=== PATIENT | male | born 1975 | race Caucasian/White ===

== ENCOUNTER 2016-09-04 01:13 | Observation (INO) | payer BC ==
[2016-09-04] MEDS ORDERED: ASPIRIN 81 MG CHEWABLE TABLET PO ONE (01:41)
[2016-09-04] MEDS: NITROGLYCERIN 0.4MG SL TABLET #25 BTL SL PRN ×3 (01:47→02:01)
[2016-09-04 02:04] LABS: BASO % 0.6 % (0-6); EOS % 6.8 % (0-6); GRAN % 54.6 % (47-80); HEMATOCRIT 41.9 % (42.0-52.0); HEMOGLOBIN 14.5 gm/dl (14.0-18.0); MEAN CELL VOLUME 84.1 fl (81-97); MEAN CORPUSCULAR HEMOGLOBIN 29.1 pg (27-33); MEAN CORPUSCULAR HGB CONC 34.6 g/dl (32-36); MEAN PLATELET VOLUME 9.7 fl (7.4-10.4); PLATELET COUNT 259 K/uL (130-400); RED BLOOD COUNT 4.98 M/uL (4.40-5.70); RED CELL DISTRIBUTION WIDTH 13.9 % (11.5-14.5); WHITE BLOOD COUNT W/O DIFF 11.3 K/uL (4.2-12.2)
[2016-09-04 02:15] LABS: ANION GAP 10.3 (7-16); BLOOD UREA NITROGEN 13 mg/dL (9-20); CARBON DIOXIDE 26.7 mmol/L (22-30); CREATINE PHOSPHOKINASE 77 U/L (55-170); EST GLOMERULAR FILTRATION RATE > 60 ml/min; GLUCOSE,RANDOM 99 mg/dL (70-110)
[2016-09-04 02:27] LABS: CKMB 0.6 ug/L (0-6); TROPONIN I < 0.012 ng/mL (0.00-0.034)
--- NOTE | 2016-09-04 02:54 | Emergency Department Record ---
History of Present Illness - General Chief complaint: Pain Stated complaint: HIGH BLOOD PRESSURE/LEFT ARM PAIN Time Seen by Provider: 09/04/16 01:21 Source: Patient Mode of Arrival: Ambulatory Limitations: No limitations - History of Present Illness Initial comments: pt has been having l shoulder and back and neck pain w some numbness in his l arm. nothing seems to make it better or worse. no other symptoms. no previous episodes. the pain started earlier in the evening and has grown progressively worse. MD Complaint: Neck Pain, Other Onset/Timin -: Hour(s) Location: Left, Shoulder History of Same: Yes Radiation: Proximal Severity scale (1-10): 8 Quality: Other Consistency: Constant Improves with: Nothing Worsens with: Exertion, Other Associated Symptoms: Denies other symptoms - Related Data Home Medications Medication Instructions Recorded Confirmed Last Taken Omeprazole [Prilosec] 20 mg PO DAILY 09/04/16 09/04/16 09/03/16 Allergies Allergy/AdvReac Type Severity Reaction Status Date / Time codeine AdvReac VOMITING Verified 09/04/16 01:21 Travel Screening - Travel/Exposure Within Last 30 Days Have you traveled within the last 30 days?: No - Travel/Exposure Within Last Year Have you traveled outside the [place] in the last year?: No - Additonal Travel Details Have you been exposed to anyone with a communicable illness?: No - Travel Symptoms Symptom Screening: None Review of Systems Reviewed: No additional complaints except as noted below Constitutional: Reports: As per HPI. Denies: Chills, Fever, Malaise, Night sweats, Weakness, Weight change Eyes: Reports: As per HPI. Denies: Eye discharge, Eye pain, Photophobia, Vision change ENT: Reports: As per HPI. Denies: Congestion, Dental pain, Ear pain, Epistaxis , Hearing loss, Throat pain Respiratory: Reports: As per HPI. Denies: Cough, Dyspnea, Hemoptysis, Stridor, Wheezes Cardiovascular: Reports: As per HPI. Denies: Arrhythmia, Chest pain, Dyspnea on exertion, Edema, Murmurs, Orthopnea, Palpitations, Paroxysmal nocturnal dyspnea, Rheumatic Fever, Syncope Endocrine: Reports: As per HPI. Denies: Fatigue, Heat or cold intolerance, Polydipsia, Polyuria Gastrointestinal: Reports: As per HPI. Denies: Abdominal pain, Constipation, Diarrhea, Hematemesis, Hematochezia, Melena, Nausea, Vomiting Genitourinary: Reports: As per HPI. Denies: Dysuria, Frequency, Hematuria, Incontinence, Retention, Testicular pain, Testicular mass, Urgency Musculoskeletal: Reports: As per HPI. Denies: Arthralgia, Back pain, Gout, Joint swelling, Myalgia, Neck pain Skin: Reports: As per HPI. Denies: Bruising, Change in color, Change in hair/ nails, Lesions, Pruritus, Rash Neurological: Reports: As per HPI. Denies: Abnormal gait, Confusion, Headache, Numbness, Paresthesias, Seizure, Tingling, Tremors, Vertigo, Weakness Psychiatric: Reports: As per HPI. Denies: Anxiety, Auditory hallucinations, Depression, Homicidal thoughts, Suicidal thoughts, Visual hallucinations Hematological/Lymphatic: Reports: As per HPI. Denies: Anemia, Blood Clots, Easy bleeding, Easy bruising, Swollen glands Past Medical History - SOCIAL HISTORY Smoking Status: Never smoker Alcohol Use: None Drug Use: None - RESPIRATORY Hx Respiratory Disorders: No - CARDIOVASCULAR Hx Cardio Disorders: No - NEURO Hx Neuro Disorders: No - GI Hx GI Disorders: Yes Hx Reflux: Yes - Hx Genitourinary Disorders: No - ENDOCRINE Hx Endocrine Disorders: No - MUSCULOSKELETAL Hx Musculoskeletal Disorders: No - PSYCH Hx Psych Problems: No - HEMATOLOGY/ONCOLOGY Hx Hematology/Oncology Disorders: No Family Medical History Any Significant Family History?: No Physical Exam - General General Appearance: Alert, Oriented x3, Cooperative, Mild distress - Head Head exam: Normal inspection - Eye Eye exam: Normal appearance, PERRL, EOMI Pupils: Normal accommodation - ENT ENT exam: Normal exam, Mucous membranes moist, Normal external ear exam, Normal orophraynx Ear exam: Normal external inspection. negative: External canal tenderness Nasal Exam: Normal inspection. negative: Discharge, Sinus tenderness Mouth exam: Normal external inspection, Tongue normal Teeth exam: Normal inspection. negative: Dental caries Throat exam: Normal inspection. negative: Tonsillar erythema, Tonsillar exudate - Neck Neck exam: Normal inspection, Full ROM. negative: Tenderness - Respiratory Respiratory exam: Normal lung sounds bilaterally. negative: Respiratory distress - Cardiovascular Cardiovascular Exam: Regular rate, Normal rhythm, Normal heart sounds - GI/Abdominal GI/Abdominal exam: Soft, Normal bowel sounds. negative: Tenderness - Rectal Rectal exam: Deferred - exam: Deferred - Extremities Extremities exam: Normal inspection, Full ROM, Normal capillary refill. negative: Tenderness - Back Back exam: Reports: Normal inspection, Full ROM. Denies: Muscle spasm, Rash noted, Tenderness - Neurological Neurological exam: Alert, CN II-XII intact, Normal gait, Oriented X3 - Psychiatric Psychiatric exam: Normal affect, Normal mood - Skin Skin exam: Dry, Intact, Normal color, Warm Course Vital Signs 09/04/16 09/04/16 09/04/16 01:19 01:20 01:51 Temperature 98.2 F Pulse Rate 85 Pulse Rate [ 96 H 93 H Pulse Ox Probe] Respiratory 24 16 18 Rate Blood Pressure 151/108 Blood Pressure 151/108 [Left Arm] Blood Pressure 132/82 [Right Arm] Pulse Ox 95 93 L 09/04/16 09/04/16 09/04/16 01:56 02:01 02:02 Temperature Pulse Rate 89 Pulse Rate [ 82 85 Pulse Ox Probe] Respiratory 16 20 14 Rate Blood Pressure Blood Pressure [Left Arm] Blood Pressure 118/72 112/73 [Right Arm] Pulse Ox 93 L 94 L 94 L 09/04/16 09/04/16 02:06 02:35 Temperature Pulse Rate Pulse Rate [ 83 72 Pulse Ox Probe] Respiratory 16 18 Rate Blood Pressure Blood Pressure [Left Arm] Blood Pressure 129/58 115/71 [Right Arm] Pulse Ox 95 98 - Reevaluation(s) Reevaluation #1: 09/04/16 02:55 3 ntg took pain from 8/10 to 0/10. Medical Decision Making - Management Options MDM Management: Additional Work-up Planned (e.g. ADM/Transfer/OP Study) - Data Complexity MDM Data: Labs Ordered and/or Reviewed, X-Ray Ordered and/or Reviewed, EKG Ordered and/or Reviewed - Lab Data Result diagrams: 09/04/16 01:55 09/04/16 01:55 Lab Results 09/04/16 09/04/16 09/04/16 Range/Units 01:55 01:55 01:55 WBC 11.3 (4.2-12.2) K/uL RBC 4.98 (4.40-5.70) M/uL Hgb 14.5 (14.0-18.0) gm/dl Hct 41.9 L (42.0-52.0) % MCV 84.1 (81-97) fl MCH 29.1 (27-33) pg MCHC 34.6 (32-36) g/dl RDW 13.9 (11.5-14.5) % Plt Count 259 (130-400) K/uL MPV 9.7 (7.4-10.4) fl Gran % 54.6 (47-80) % Lymphocytes % 30.0 (16-45) % Monocytes % 8.0 (0-9) % Eosinophils % 6.8 H (0-6) % Basophils % 0.6 (0-6) % D-Dimer 0.47 (0-0.59) mg/L FEU Sodium 142 (136-145) mmol/L Potassium 3.7 (3.5-5.1) mmol/L Chloride 105 (98-107) mmol/L Carbon Dioxide 26.7 (22-30) mmol/L Anion Gap 10.3 (7-16) BUN 13 (9-20) mg/dL Creatinine 1.0 (0.66-1.25) mg/dL Estimated GFR > 60 ml/min Random Glucose 99 (70-110) mg/dL Calcium 9.1 (8.5-10.1) mg/dL Creatine Kinase 77 (55-170) U/L CK-MB (CK-2) 0.6 (0-6) ug/L Troponin I < 0.012 (0.00-0.034) ng/mL - EKG Data -: EKG Interpreted by Me EKG: No Acute Changes - Radiology Data Radiology results: Image reviewed -: Radiology Exam Interpreted by Myself Disposition Disposition: Admit Clinical Impression: Chest pain Qualifiers: Chest pain type: unspecified Qualified Code(s): R07.9 - Chest pain, unspecified Disposition: Still a Patient at [facility] Decision to Admit: Admit from ER Decision to Admit Date: 09/04/16 Decision to Admit Time: 03:00 Forms: Patient Portal Access
[2016-09-04] MEDS ORDERED: ACETAMINOPHEN 500 MG TABLET PO PRN (03:29)
[2016-09-04] MEDS ORDERED: TEMAZEPAM 15 MG CAPSULE PO PRN (03:29)
[2016-09-04 04:02] LABS: LDL CHOLESTEROL/MEASURED 91.4 mg/dL (0-100)
[2016-09-04] MEDS ORDERED: PANTOPRAZOLE SODIUM 40 MG TABLET PO SCH (07:00)
[2016-09-04 09:29] LABS: CKMB 0.5 ug/L (0-6); TROPONIN I < 0.012 ng/mL (0.00-0.034)
[2016-09-04] MEDS ORDERED: ASPIRIN 325 MG TAB ENTERIC-COATED PO SCH (10:00)
[2016-09-04] MEDS ORDERED: Non-Formulary MISC (Omeprazole 20 MG) PO SCH (10:00)
--- NOTE | 2016-09-04 12:13 | Discharge Note ---
VTE H&P Assessment - Risk for VTE Risk for VTE: No Risk Assessment Date: 09/04/16 Risk Assessment Time: 12:10 Discharge Medications - Discharge Medications Prescriptions: Aspirin [Aspirin EC] 325 mg PO DAILY #30 tablet. Naproxen [Naprosyn] 500 mg PO Q12H #20 tab. Home Medications: Ambulatory Orders Aspirin [Aspirin EC] 325 mg PO DAILY #30 tablet. 09/04/16 [Last Taken Unknown] Naproxen [Naprosyn] 500 mg PO Q12H #20 tab. 09/04/16 [Last Taken Unknown] Omeprazole [Prilosec] 20 mg PO DAILY 09/04/16 [Last Taken 09/03/16] Discharge Note - Date Date of Discharge Note: 09/04/16 Disposition: Home, Self-Care Condition: (2) Stable Additional Instructions: aspirin 325 mg one a day naprosyn 500 mg BID stress test tuesday or as soon as possible follow up with Dr. Mahajan on at 9am Forms: Patient Portal Access
--- NOTE | 2016-09-06 08:00 | RADIOLOGY REPORT ---
EXAM: CHEST, TWO VIEWS HISTORY: LEFT ARM CHEST PAIN FOR FIVE HOURS. TECHNIQUE: Two views of the chest were obtained. Comparison: None. FINDINGS: The lungs are clear. The cardiac silhouette, diaphragm and osseous structures are unremarkable for age. IMPRESSION: NEGATIVE CHEST EXAMINATION. JOB NUMBER: [id number] MTDD
--- NOTE | 2016-09-06 12:58 | Discharge Summary ---
DATE OF ADMISSION: 09/04/2016 DATE OF DISCHARGE: 09/04/2016 DISCHARGE DIAGNOSES: 1. Left shoulder pain, musculoskeletal in nature; bursitis. 2. Neck pain, which is referred pain from his shoulder. 3. Radiculopathy into his left arm, which is secondary to the left shoulder pain. 4. Ruled out myocardial infarction by 2 enzyme time points and 2 EKG time points. 5. Because of the atypical relief of the pain with nitroglycerin, recommend a stress test, but the patient would like to schedule it as an outpatient rather than going by ambulance to [place] today to have it done. I informed him to return to the Emergency Department as soon as possible if he develops more chest pain, but he just stated there is no chest pain, just shoulder pain and neck pain. ATTENDING PHYSICIAN: Merrick Mahajan DO REASON FOR HOSPITALIZATION: Left shoulder pain, neck pain with radiation to the left arm, worse when he is moving the steering wheel and lifting his arm up over his head. He presented to the Emergency Department, seen by Dr. Osorio, and he denied any diaphoresis or nausea, but he was given an aspirin and 3 Nitro, and the pain went away. Because of that, he was admitted to the hospital for serial cardiac enzymes and serial EKGs. He describes the pain more as a sharp pain that is in the shoulder mostly when he lifts it up to hold his cellphone or when he is moving the steering wheel back and forth. 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 He works for the [employer]. He felt maybe it was atypical chest pain and they brought him into the hospital for evaluation. THERAPY PROVIDED: IV fluids, monitor, and aspirin. Patient is chest-pain and [id number] at this time, except when I palpated his shoulder he said it hurt a little bit at the AC joint. He also said that when he held his cellphone up during the night to look at it, his AC joint in the left shoulder hurt when he held it in a certain position. HOSPITAL COURSE: The patient is asymptomatic at the time of discharge. He is feeling much better. Discussed the options of going by ambulance today for a stress test. He would rather have it scheduled as an outpatient, and will have bring him back and have this stress test. Walking is the only thing I want him to do until he has the stress test done. If he has more pain or discomfort, he should return to the ER for reevaluation. DISCHARGE INSTRUCTIONS: 1. Schedule stress test, outpatient, Tuesday or as soon as possible. 2. Aspirin once a day 325 mg. 3. Naprosyn 500 mg b.i.d. with food to help his shoulder discomfort and bursitis in the left shoulder. 4. Follow up with Dr. Mahajan on at 9 a.m. for evaluation in the office. BHARTI
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
== END 2016-09-04 13:13 | disposition home or self-care (01) ==
LOC: ER 01:13 → MEDSURG 03:03
PROVIDERS: ADMIT Emergency Medicine; ATTEND Emergency Medicine
DX: R07.89 Other chest pain (principal); R03.0 Elevated blood-pressure reading, without diagnosis of hypertension; M25.512 Pain in left shoulder; M54.2 Cervicalgia
CPT/HCPCS: 99285 ×2; 82550; 85025; 82553; 84484; 80048; 80061; 85379; 71020; 94760; 93005; 93010; G0378; 99236

== ENCOUNTER 2017-03-08 17:08 | Emergency (ER) | payer BC ==
[2017-03-08] MEDS ORDERED: ONDANSETRON HCL IV 4 MG/2 ML VIAL IVP ONE (17:37)
[2017-03-08] MEDS ORDERED: HYDROMORPHONE HCL 1MG/ML **SYRINGE IVP ONE ×2 (17:37→19:02)
--- NOTE | 2017-03-08 17:40 | Emergency Department Record ---
History of Present Illness - General Chief Complaint: Wound, puncture Stated Complaint: LT KNEE NAIL PUNCTURE Time Seen by Provider: 03/08/17 17:32 Source: Patient Mode of Arrival: Ambulatory Limitations: No limitations - History of Present Illness Initial Commments: pt stepped on a board that had a nail in it which slapped up and hit him just proximal to the fibula head. now he has pain w movement of the knee as well as swelling and exquisite tenderness to the medial aspect of the knee Onset/Timin -: Hour(s) Extremity Location: Left: Knee Place: Home Context: Accidental Associated Symptoms: None - Perla Coma Scale Eye Response: (4) Open spontaneously Motor Response: (6) Obeys commands Verbal Response: (5) Oriented [place] Total: 15 - Related Data Hx Tetanus Toxoid Vaccination: Yes Year of Tetanus Vaccination: 2007 Home Medications Medication Instructions Recorded Confirmed Last Taken Fenofibrate Nanocrystallized 145 mg PO DAILY 03/08/17 03/08/17 Unknown [Fenofibrate] Previous Rx's Medication Instructions Recorded Aspirin [Aspirin EC] 325 mg PO DAILY #30 tablet. 09/04/16 Allergies Allergy/AdvReac Type Severity Reaction Status Date / Time codeine AdvReac VOMITING Verified 09/04/16 01:21 Travel Screening - Travel/Exposure Within Last 30 Days Have you traveled within the last 30 days?: No Review of Systems Reviewed: No additional complaints except as noted below Constitutional: Reports: As per HPI. Denies: Chills, Fever, Malaise, Night sweats, Weakness, Weight change Eyes: Reports: As per HPI. Denies: Eye discharge, Eye pain, Photophobia, Vision change ENT: Reports: As per HPI. Denies: Congestion, Dental pain, Ear pain, Epistaxis , Hearing loss, Throat pain Respiratory: Reports: As per HPI. Denies: Cough, Dyspnea, Hemoptysis, Stridor, Wheezes Cardiovascular: Reports: As per HPI. Denies: Arrhythmia, Chest pain, Dyspnea on exertion, Edema, Murmurs, Orthopnea, Palpitations, Paroxysmal nocturnal dyspnea, Rheumatic Fever, Syncope Endocrine: Reports: As per HPI. Denies: Fatigue, Heat or cold intolerance, Polydipsia, Polyuria Gastrointestinal: Reports: As per HPI. Denies: Abdominal pain, Constipation, Diarrhea, Hematemesis, Hematochezia, Melena, Nausea, Vomiting Genitourinary: Reports: As per HPI. Denies: Dysuria, Frequency, Hematuria, Incontinence, Retention, Testicular pain, Testicular mass, Urgency Musculoskeletal: Reports: As per HPI. Denies: Arthralgia, Back pain, Gout, Joint swelling, Myalgia, Neck pain Skin: Reports: As per HPI. Denies: Bruising, Change in color, Change in hair/ nails, Lesions, Pruritus, Rash Neurological: Reports: As per HPI. Denies: Abnormal gait, Confusion, Headache, Numbness, Paresthesias, Seizure, Tingling, Tremors, Vertigo, Weakness Psychiatric: Reports: As per HPI. Denies: Anxiety, Auditory hallucinations, Depression, Homicidal thoughts, Suicidal thoughts, Visual hallucinations Hematological/Lymphatic: Reports: As per HPI. Denies: Anemia, Blood Clots, Easy bleeding, Easy bruising, Swollen glands Past Medical History - SOCIAL HISTORY Smoking Status: Never smoker Alcohol Use: None Drug Use: None - RESPIRATORY Hx Respiratory Disorders: No - CARDIOVASCULAR Hx Cardio Disorders: No - NEURO Hx Neuro Disorders: No - GI Hx GI Disorders: Yes Hx Reflux: Yes - Hx Genitourinary Disorders: No - ENDOCRINE Hx Endocrine Disorders: No - MUSCULOSKELETAL Hx Musculoskeletal Disorders: No - PSYCH Hx Psych Problems: No - HEMATOLOGY/ONCOLOGY Hx Hematology/Oncology Disorders: No Family Medical History Any Significant Family History?: Yes Hx Cancer: Grandparents Hx Heart Disease: Father Hx Resp Disorders: Grandparents Physical Exam - General General Appearance: Alert, Oriented x3, Cooperative, Mild distress - Head Head exam: Normal inspection - Eye Eye exam: Normal appearance, PERRL, EOMI Pupils: Normal accommodation - ENT ENT exam: Normal exam, Mucous membranes moist, Normal external ear exam, Normal orophraynx Ear exam: Normal external inspection. negative: External canal tenderness Nasal Exam: Normal inspection. negative: Discharge, Sinus tenderness Mouth exam: Normal external inspection, Tongue normal Teeth exam: Normal inspection. negative: Dental caries Throat exam: Normal inspection. negative: Tonsillar erythema, Tonsillar exudate - Neck Neck exam: Normal inspection, Full ROM. negative: Tenderness - Respiratory Respiratory exam: Normal lung sounds bilaterally. negative: Respiratory distress - Cardiovascular Cardiovascular Exam: Regular rate, Normal rhythm, Normal heart sounds - GI/Abdominal GI/Abdominal exam: Soft, Normal bowel sounds. negative: Tenderness - Rectal Rectal exam: Deferred - exam: Deferred - Extremities Extremities exam: Joint swelling (l knee), Normal capillary refill, Tenderness ( entire knee exquisitely tender). negative: Full ROM - Back Back exam: Reports: Normal inspection, Full ROM. Denies: Muscle spasm, Rash noted, Tenderness - Neurological Neurological exam: Alert, CN II-XII intact, Normal gait, Oriented X3 - Psychiatric Psychiatric exam: Normal affect, Normal mood - Skin Skin exam: Dry, Intact, Normal color, Warm Course Vital Signs 03/08/17 17:20 Temperature 98.0 F Pulse Rate 84 Respiratory 20 Rate Blood Pressure 146/81 Pulse Ox 98 - Reevaluation(s) Reevaluation #1: 03/08/17 18:43 d/w dr melo Medical Decision Making - Lab Data Result diagrams: 03/08/17 17:40 Disposition Disposition: Transfer Clinical Impression: Septic joint of left knee joint Qualifiers: Septic arthritis organism: due to unspecified organism Qualified Code(s): M00.9 - Pyogenic arthritis, unspecified Disposition: Acute Care Hospital Transfer Transfer To: [facility] Reason For Transfer: foreign body entered joint, infected effusion Accepting Physician: dr melo Time Discussed w/Accepting Physician: 18:20 Forms: Patient Portal Access Quality - Quality Measures Quality Measures: N/A - Blood Pressure Screening Does Patient Have Any of the Following: No Blood Pressure Classification: Pre-Hypertensive BP Reading Systolic Measurement: 146 Diastolic Measurement: 81 Screening for High Blood Pressure: < Pre-Hypertensive BP, F/U Documented > [ [id number]] Pre-Hypertensive Follow-up Interventions: Follow-up with rescreen every year.
[2017-03-08 17:48] LABS: BASO % 0.5 % (0-6); EOS % 1.9 % (0-6); GRAN % 65.8 % (47-80); HEMOGLOBIN 14.8 gm/dl (14.0-18.0); LYMPH % 22.9 % (16-45); MEAN CELL VOLUME 84.5 fl (81-97); MEAN CORPUSCULAR HEMOGLOBIN 29.8 pg (27-33); MEAN CORPUSCULAR HGB CONC 35.2 g/dl (32-36); MEAN PLATELET VOLUME 9.5 fl (7.4-10.4); MONO % 8.9 % (0-9); PLATELET COUNT 318 K/uL (130-400); RED BLOOD COUNT 4.97 M/uL (4.40-5.70); RED CELL DISTRIBUTION WIDTH 13.3 % (11.5-14.5); WHITE BLOOD COUNT W/O DIFF 10.7 K/uL (4.2-12.2)
[2017-03-08] MEDS ORDERED: CEFTRIAXONE SODIUM 1 GM in 0.9 % SODIUM CHLORIDE 100ML 100 ML IVPB ONE (18:22)
[2017-03-08] MEDS ORDERED: Diph,Pert(Acell),Tet Vac 0.5 ML SYR IM ONE (18:47)
--- NOTE | 2017-03-10 10:45 | RADIOLOGY REPORT ---
EXAM: LEFT KNEE HISTORY: PAIN. TECHNIQUE: Four views of the left knee were performed. FINDINGS: No evidence of fracture or dislocation. No radiopaque loose body. There is a small joint effusion. IMPRESSION: 1. NO EVIDENCE OF FRACTURE. 2. SMALL JOINT EFFUSION. JOB NUMBER: [id number] MTDD
== END 2017-03-08 19:15 | disposition short-term general hospital (02) ==
LOC: ER 17:08
DX: S81.032A Puncture wound without foreign body, left knee, initial encounter (principal); M00.862 Arthritis due to other bacteria, left knee; W22.8XXA Striking against or struck by other objects, initial encounter; Y92.009 Unspecified place in unspecified non-institutional (private) residence as the place of occurrence of the external cause
CPT/HCPCS: 99285 ×2; 96376; 96374; 96372; 96375; 85025; 73564; J2405; J1170; 90715

== ENCOUNTER 2019-01-11 11:45 | Day surgery (SDC) | payer BC ==
[2019-01-11] MEDS ORDERED: PROPOFOL 10 MG/ML VIAL IV ONE (11:46)
[2019-01-11] MEDS ORDERED: LIDOCAINE 2% MDV (20MG/ML) 20ML VIAL IV ONE (11:46)
--- NOTE | 2019-01-12 11:20 | Operative Note ---
OPERATION: COLONOSCOPY. PREOPERATIVE DIAGNOSIS: Hematochezia. POSTOPERATIVE DIAGNOSIS: Hemorrhoids. PREPARATION QUALITY: Excellent. ESTIMATED BLOOD LOSS: None. SPECIMENS: None. COMPLICATIONS: None. PROCEDURE: After informed consent was obtained from the patient, the patient was placed in the left lateral decubitus position in the endoscopy suite, sedated and monitored by the department of anesthesia. Digital rectal exam was unremarkable. A well-lubricated [id number] colonoscope was inserted into the rectum and advanced to the cecum. Preparation quality was excellent. The cecum, cecal bulb, distal portion of the terminal ileum, ascending colon, transverse colon, descending colon, sigmoid colon, and rectum were free of inflammatory changes, mass lesions, or polyps. Forward and J-turn views of the rectum and anorectum were unremarkable other than hemorrhoids being noted. The endoscope was straightened, the rectal ampulla deflated, and the endoscope was removed. RECOMMENDATIONS: I would suggest the patient follow a high-fiber diet and undergo repeat exam in 10 years or sooner should symptoms warrant. As always, thank you for allowing me to participate in the healthcare of your patients. [email or web address]
== END 2019-01-11 13:00 | disposition home or self-care (01) ==
LOC: HOP 11:45
PROVIDERS: ATTEND Internal Medicine Gastroenterology
DX: K92.1 Melena (principal); K64.9 Unspecified hemorrhoids; E78.00 Pure hypercholesterolemia, unspecified